=== PATIENT | female | born 1980 | race Caucasian/White ===

== ENCOUNTER 2016-12-09 06:54 | Emergency (ER) | payer SELFPAY ==
[2016-12-09] MEDS ORDERED: DEXAMETHASONE SOD PHOS INJ 10 MG/1 ML VIAL IM ONE (08:06)
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
[2016-12-09 08:27] VITALS: BP 131/78
== END 2016-12-09 08:27 | disposition home or self-care (01) ==
LOC: ER 06:54
DX: M54.5 Low back pain (principal); F17.200 Nicotine dependence, unspecified, uncomplicated; Z88.6 Allergy status to analgesic agent; Z90.49 Acquired absence of other specified parts of digestive tract
CPT/HCPCS: 99283; 96372; J1100